=== PATIENT | female | born 1985 | race Caucasian/White ===

== ENCOUNTER 2018-06-01 22:36 | Emergency (ER) | payer MEDICAID ==
[~2018-06-01] VITALS: Ht 157.5 cm; Wt 61.0 kg
[~2018-06-01 22:36] MED LIST: PREN-88 PO
[2018-06-01] MEDS ORDERED: ONDANSETRON HCL 4MG/2ML VIAL IV STA (23:39)
[2018-06-01] MEDS ORDERED: SODIUM CHLORIDE 0.9% 1,000 ML IV ONE (23:39)
[2018-06-01] MEDS ORDERED: PANTOPRAZOLE SODIUM 40 MG/VIAL IV STA (23:39)
[2018-06-01] MEDS ORDERED: KETOROLAC 30MG/ML VIAL IV STA (23:39)
[2018-06-01] MEDS ORDERED: MAGNESIUM/ALUMINUM HYDROXIDE/SIMETHICONE 30ML UDC PO STA (23:39)
[2018-06-02 02:15] LABS: BASOPHILS % 0.4 % (0.0-2.0); EOSINOPHILS % 2.1 % (0.0-5.0); HEMOGLOBIN. 12.9 g/dL (12.0-16.0); LYMPHOCYTES % 34.3 % (20.0-50.0); MEAN CORPUSCULAR HEMOGLOBIN 30.7 pg (28.0-32.0); MEAN PLATELET VOLUME 7.4 fl (7.4-10.4); MONOCYTES % 11.5 % (2.0-8.0); NEUTROPHILS % 51.7 % (40.0-76.0); PLATELET 352 x1000/uL (130-400); RED BLOOD CELL COUNT 4.21 mill/uL (4.2-5.4); RED CELL DISTRIBUTION WIDTH 12.5 % (11.6-14.6)
[2018-06-02 02:28] LABS: CHLORIDE 108 mEq/L (98-107)
[2018-06-02 04:42] VITALS: BP 100/56
== END 2018-06-02 04:40 | disposition home or self-care (01) ==
LOC: ER 22:36
DX: R55 Syncope and collapse (principal); R10.9 Unspecified abdominal pain; Z98.51 Tubal ligation status
CPT/HCPCS: 36415; 71045; 80053; 81025; 83690; 85025; 93005; 96361; 96374; 96375; 99285; C9113; J1885; J2405; J7030; Z7610

== ENCOUNTER 2019-01-24 22:24 | Emergency (ER) | payer MEDICAID ==
[~2019-01-24] VITALS: Ht 152.4 cm; Wt 59.0 kg
[2019-01-24 23:53] LABS: BASOPHILS % 0.2 % (0.0-2.0); EOSINOPHILS % 0.1 % (0.0-5.0); HEMATOCRIT. 41.3 % (36.0-48.0); HEMOGLOBIN. 14.2 g/dL (12.0-16.0); LYMPHOCYTES % 10.8 % (20.0-50.0); MEAN CORPUSCULAR HEMOGLOBIN 30.8 pg (28.0-32.0); MEAN CORPUSCULAR VOLUME 89.7 fL (81.0-99.0); MEAN PLATELET VOLUME 7.1 fl (7.4-10.4); MONOCYTES % 4.2 % (2.0-8.0); NEUTROPHILS % 84.7 % (40.0-76.0); PLATELET 379 x1000/uL (130-400); RED CELL DISTRIBUTION WIDTH 12.5 % (11.6-14.6)
[2019-01-24 23:58] LABS: CHLORIDE 105 mEq/L (98-107)
[2019-01-25 00:01] LABS: HCG SCREEN NEGATIVE
[2019-01-25 00:02] LABS: ETHANOL BLOOD < 10 mg/dL
[2019-01-25 00:41] LABS: CLARITY URINE CLOUDY (CLEAR); COLOR URINE YELLOW (YELLOW); KETONES URINE TRACE (NEGATIVE); LEUKOCYTE ESTERASE URINE 2+ (NEGATIVE); NITRITE URINE NEGATIVE (NEGATIVE); OCCULT BLOOD URINE NEGATIVE (NEGATIVE); PH URINE 6.5 (4.5-8.0); PROTEIN URINE NEGATIVE (NEGATIVE); SPECIFIC GRAVITY URINE 1.023 (1.005-1.030); UROBILINOGEN URINE 0.2 E.U./dL (0.2-1.0)
[2019-01-25 00:58] LABS: *AMPHETAMINES SCREEN URINE NEGATIVE (NEGATIVE); *BARBITURATES SCREEN URINE NEGATIVE (NEGATIVE); *BENZODIAZEPINES SCREEN URINE NEGATIVE (NEGATIVE); CANNABINOID URINE SCREEN NEGATIVE (NEGATIVE); PHENCYCLIDINE URINE SCREEN NEGATIVE (NEGATIVE)
[2019-01-25 00:59] LABS: *COCAINE SCREEN URINE NEGATIVE (NEGATIVE); METHADONE URINE SCREEN NEGATIVE (NEGATIVE); OPIATES URINE SCREEN NEGATIVE (NEGATIVE)
[2019-01-25] MEDS ORDERED: CEFTRIAXONE SODIUM 1 G/VIAL IM ONE (01:30)
[2019-01-25] MEDS ORDERED: LIDOCAINE HCL/PF 1% 10 MG/ML 5ML VIAL IJ ONE (01:45)
[2019-01-25 19:15] VITALS: BP 121/69
== END 2019-01-25 19:25 | disposition home or self-care (01) ==
LOC: ER 22:24
DX: R45.851 Suicidal ideations (principal); N39.0 Urinary tract infection, site not specified
CPT/HCPCS: 36415; 80053; 80305; 80307; 80320; 80329; 81003; 84703; 85025; 96372; 99284; J0696; J3490; G0480

== ENCOUNTER 2019-07-22 09:22 | Emergency (ER) | payer MEDICAID ==
[~2019-07-22] VITALS: Ht 154.9 cm; Wt 60.0 kg
[2019-07-22] MEDS ORDERED: OXYCODONE HCL/ACETAMINOPHEN 5/325MG TABLET PO ONE (09:45)
[2019-07-22 12:13] VITALS: BP 100/60
== END 2019-07-22 12:15 | disposition home or self-care (01) ==
LOC: ER 09:22
DX: S20.219A Contusion of unspecified front wall of thorax, initial encounter (principal); M54.5 Low back pain; V49.40XA Driver injured in collision with unspecified motor vehicles in traffic accident, initial encounter; Y93.89 Activity, other specified; Y92.488 Other paved roadways as the place of occurrence of the external cause
CPT/HCPCS: 71045; 99284

== ENCOUNTER 2021-11-13 10:30 | Emergency (ER) | payer MEDICAID ==
[~2021-11-13] VITALS: Ht 157.5 cm; Wt 68.0 kg
[2021-11-13 13:41] LABS: CLARITY URINE CLOUDY (CLEAR); COLOR URINE YELLOW (YELLOW); KETONES URINE NEGATIVE (NEGATIVE); LEUKOCYTE ESTERASE URINE 3+ (NEGATIVE); NITRITE URINE NEGATIVE (NEGATIVE); OCCULT BLOOD URINE NEGATIVE (NEGATIVE); PH URINE 6.5 (4.5-8.0); PROTEIN URINE NEGATIVE (NEGATIVE); SPECIFIC GRAVITY URINE 1.014 (1.005-1.030); UROBILINOGEN URINE 0.2 E.U./dL (0.2-1.0)
[2021-11-13] MEDS ORDERED: CEPH250C2 MT (15:16)
[2021-11-13 15:36] VITALS: BP 132/78
== END 2021-11-13 15:37 | disposition home or self-care (01) ==
LOC: ER 10:30
DX: N39.0 Urinary tract infection, site not specified (principal); N83.201 Unspecified ovarian cyst, right side
CPT/HCPCS: 76830; 76856; 81003; 81025; 99284